=== PATIENT | male | born 1960 | race Caucasian/White ===

== ENCOUNTER 2021-01-24 18:29 | Inpatient (IN) | payer MEDICAID, OTHER ==
[~2021-01-24] VITALS: Ht 172.7 cm; Wt 120.8 kg
--- NOTE | 2021-01-24 19:07 | NUR ---
Pt ambulated to ER with steady gait with c/o n/v since yesterday. A/O x3, no SOB or labored breathing. Clear speech, complete sentences.
--- NOTE | 2021-01-24 19:30 | NUR ---
DR. DEL ROSARIO AT BEDSIDE, MSE IN BEDSIDE.
[2021-01-24] MEDS ORDERED: IV NORMAL SALINE 1000 ML BAG IV ONE ×2 (19:45→23:00)
[2021-01-24] MEDS ORDERED: METOCLOPRAMIDE HCL 10 MG/2 ML VIAL IV ONE (19:45)
[2021-01-24] MEDS ORDERED: KETOROLAC TROMETHAMINE 15 MG INJ IVP ONE (19:45)
[2021-01-24] MEDS ORDERED: LORAZEPAM 2 MG/1 ML VIAL IV ONE ×2 (19:45→22:30)
[2021-01-24] MEDS ORDERED: METOCLOPRAMIDE HCL 10 MG/2 ML VIAL ONE (20:02)
[2021-01-24] MEDS ORDERED: KETOROLAC TROMETHAMINE 15 MG INJ ONE (20:02)
[2021-01-24] MEDS ORDERED: LORAZEPAM 2 MG/1 ML VIAL ONE ×2 (20:03→22:43)
[2021-01-24 20:14] LABS: MEAN CORPUSCULAR HEMOGLOBIN 28.2 uug (23.8-33.4); MEAN CORPUSCULAR VOLUME 92.7 fL (73.0-96.2); PLATELET COUNT (AUTO) 215 K/uL (152-348)
[2021-01-24 20:20] LABS: CREATININE 1.4 mg/dL (0.6-1.3); POTASSIUM 4.6 mmol/L (3.5-5.1)
[2021-01-24 20:42] LABS: BILIRUBIN,DIRECT 0.3 mg/dL (0.0-0.2); BILIRUBIN,TOTAL 0.6 mg/dL (0.2-1.0); TOTAL PROTEIN, SERUM 8.6 g/dL (6.4-8.2)
--- NOTE | 2021-01-24 21:33 | NUR ---
PT TAKEN DOWN FOR CT, SIGNED CONSENT FORM.
[2021-01-24] MEDS ORDERED: IV NORMAL SALINE 250 ML IV ONE (21:43)
[2021-01-24] MEDS ORDERED: IOHEXOL 300MG/ML 100 ML INFUS..BTL ONE (21:43)
[2021-01-24] MEDS ORDERED: SWABABLE VALVE TRANSFER SET EA MC ONE (21:43)
--- NOTE | 2021-01-24 21:56 | NUR ---
PT RETURNED FROM CT. STABLE CONDITION.
[2021-01-24 22:12] LABS: *BILIRUBIN,URIN 1+ (NEGATIVE); *BLOOD, URINE 2+ (NEGATIVE); *CLARITY,URINE CLEAR (CLEAR); *COLOR,URINE YELLOW (YELLOW); *KETONES,URINE 3+ (NEGATIVE); *UROBILINOGEN,URINE 0.2 E.U./dl (NORMAL); LEUKOCYTE ESTERASE ,URINE NEGATIVE (NEGATIVE); NITRITE, URINE NEGATIVE (NEGATIVE); PH,URINE 5.5 (5.0-8.0); UGLUCOSE NEGATIVE (NEGATIVE)
[2021-01-24 22:22] LABS: BACTERIA,URINE NONE SEEN /HPF (NONE SEEN); SQUAMOUS EPITHELIAL CELL,UR FEW /HPF (NONE SEEN); WBC,URINE 0-3 /HPF (0-3)
--- NOTE | 2021-01-24 22:31 | NUR ---
CALLED [facility] FOR PANEL CALL, RICARDO BATES PAGED.
[2021-01-24] MEDS ORDERED: ALPR1TAB7 PO (23:02)
[2021-01-25] VITALS (7 sets, daily range): BP systolic 125–155; BP diastolic 74–82
[2021-01-25] MEDS ORDERED: ACETAMINOPHEN 325 MG TABLET PO PRN (00:15)
[2021-01-25] MEDS ORDERED: LABETALOL HCL 100 MG/20 ML VIAL IV PRN (00:15)
[2021-01-25] MEDS ORDERED: hydrALAZINE HCL 20 MG/1 ML VIAL IV PRN (00:15)
[2021-01-25] MEDS ORDERED: MAGNESIUM HYDROXIDE 30 ML LIQUID UDC PO PRN (00:15)
--- NOTE | 2021-01-25 00:15 | NUR ---
PT RESTING COMFORTABLY IN BED, DENIES ANY PAIN/DISCOMFORT. VSS. NOTED TO BE USING HIS PHONE.
[2021-01-25] MEDS ORDERED: DEXTROSE 50% 50 ML DISP.SYRIN IV PRN (00:30)
[2021-01-25] MEDS ORDERED: CHLORDIAZEPOXIDE HCL 25 MG CAPSULE PO SCH ×2 (00:30→09:00)
--- NOTE | 2021-01-25 00:58 | NUR ---
GAVE REPORT TO CHEPE ROSE.
--- NOTE | 2021-01-25 02:00 | NUR ---
Pt. admitted to [facility] room 321, under care of DR. BATES Dx: alcohol keto acidosis Belongs List completed
[2021-01-25] MEDS: LORAZEPAM 2 MG/1 ML VIAL IV PRN ×3 (02:16→18:05)
[2021-01-25] MEDS: BLOOD SUGAR DIAGNOSTIC 1 EACH STRIP VI SCH ×5 (02:20→20:43)
[2021-01-25] MEDS: IV D5 1/2 NS 1000 ML 1,000 ML IV SCH ×7 (02:20→20:15)
[2021-01-25] MEDS ORDERED: CHLORDIAZEPOXIDE HCL 25 MG CAPSULE ONE (03:08)
[2021-01-25] MEDS: ONDANSETRON 4 MG/2 ML VIAL IV PRN ×3 (03:46→23:26)
[2021-01-25] MEDS: HYDROCODONE/APAP 5-325MG TABLET PO PRN ×2 (04:45→23:25)
--- NOTE | 2021-01-25 05:19 | NUR ---
IV fluid not administered at this time, will finish the present bag yet. Will endorse accordingly.
--- NOTE | 2021-01-25 06:18 | NUR ---
Shift End Report. ST up to 110-115bpm non sustaining. Medicated once for pain with help. No further complaint presented but very needy and demanding, call light on all the time, needs attended and met. Continue care as planned.
[2021-01-25 06:41] LABS: CREATINE KINASE, TOTAL 615 U/L (39-308)
[2021-01-25 06:49] LABS: CREATININE 1.2 mg/dL (0.6-1.3)
[2021-01-25 06:54] LABS: ETHANOL < 3 MG/DL (0-0)
[2021-01-25 06:55] LABS: BILIRUBIN,TOTAL 0.7 mg/dL (0.2-1.0); TOTAL PROTEIN, SERUM 6.7 g/dL (6.4-8.2)
--- NOTE | 2021-01-25 07:52 | NUR ---
Alert, oriented x 4. IVF infusing. Denies pain. Call light with in reach.
[2021-01-25] MEDS: HEPARIN SODIUM,PORCINE 5,000 UNITS/ML VIAL SQ SCH ×2 (08:35→20:41)
[2021-01-25] MEDS: INSULIN REGULAR, HUMAN 300 UNIT/3 ML VIAL SQ PRN ×4 (08:36→20:42)
[2021-01-25] MEDS ORDERED: HEPARIN SODIUM,PORCINE 5,000 UNITS/ML VIAL SQ SCH (09:00)
[2021-01-25] MEDS ORDERED: Medication Not On Formulary EA (Alprazolam (Xanax) 1 MG) PO SCH (09:00)
[2021-01-25] MEDS: AMOXICILLIN-CLAVUL 875-125MG TABLET PO SCH ×2 (09:29→17:20)
[2021-01-25] MEDS: DIAZEPAM 10 MG TABLET PO SCH ×3 (10:36→21:28)
--- NOTE | 2021-01-25 11:00 | NUR ---
Monitored for withdrawal symptoms per protocol. Valium given as ordered
[2021-01-25] MEDS ORDERED: ALPRAZOLAM 0.5 MG TABLET PO PRN (12:30)
[2021-01-25 12:31] LABS: BILIRUBIN,TOTAL 0.6 mg/dL (0.2-1.0); CREATININE 1.2 mg/dL (0.6-1.3); POTASSIUM 3.5 mmol/L (3.5-5.1); TOTAL PROTEIN, SERUM 6.4 g/dL (6.4-8.2)
[2021-01-25 13:03] LABS: HEMATOCRIT 34.1 % (36.7-47.1); MEAN CORPUSCULAR VOLUME 88.4 fL (73.0-96.2); PLATELET COUNT (AUTO) 156 K/uL (152-348)
[2021-01-25 16:55] LABS: BILIRUBIN,TOTAL 0.6 mg/dL (0.2-1.0); CREATININE 1.2 mg/dL (0.6-1.3); POTASSIUM 3.3 mmol/L (3.5-5.1); TOTAL PROTEIN, SERUM 6.5 g/dL (6.4-8.2)
--- NOTE | 2021-01-25 18:11 | NUR ---
Feeling anxious. Ativan PRN given as ordered. Endorsed for further care
--- NOTE | 2021-01-25 19:30 | NUR ---
Received pt in bed, awake and verbally responsive, able to make needs known. IVF infusing well. No signs of respiratory distress. Discussed plan of care with pt. Safety measures initiated, call light within reach.
--- NOTE | 2021-01-25 20:17 | NUR ---
IVF already administered by AM nurse.
[2021-01-25 20:48] LABS: BILIRUBIN,TOTAL 0.5 mg/dL (0.2-1.0); CREATININE 1.1 mg/dL (0.6-1.3); POTASSIUM 3.4 mmol/L (3.5-5.1); TOTAL PROTEIN, SERUM 6.7 g/dL (6.4-8.2)
[2021-01-26] MEDS: LORAZEPAM 2 MG/1 ML VIAL IV PRN ×2 (00:09→06:09)
[2021-01-26] MEDS: IV D5 1/2 NS 1000 ML 1,000 ML IV SCH ×2 (00:21→06:02)
[2021-01-26 03:39] LABS: BILIRUBIN,TOTAL 0.4 mg/dL (0.2-1.0); CREATININE 1.1 mg/dL (0.6-1.3); POTASSIUM 3.3 mmol/L (3.5-5.1); TOTAL PROTEIN, SERUM 6.4 g/dL (6.4-8.2)
[2021-01-26 04:41] VITALS: BP 152/80
[2021-01-26 04:55] LABS: BILIRUBIN,TOTAL 0.4 mg/dL (0.2-1.0); POTASSIUM 3.2 mmol/L (3.5-5.1); TOTAL PROTEIN, SERUM 6.5 g/dL (6.4-8.2)
[2021-01-26] MEDS ORDERED: CHLORDIAZEPOXIDE HCL 25 MG CAPSULE PO SCH ×2 (06:00→09:00)
[2021-01-26] MEDS ORDERED: DIAZEPAM 5 MG TABLET PO SCH (06:00)
--- NOTE | 2021-01-26 07:00 | NUR ---
Monitored for withdrawal symptoms per protocol. No significant change in condition noted through the night. Tolerated medications well. New IV access on R AC intact and patent. Latest BS is 111. All needs attended to and met.
[2021-01-26 07:03] LABS: BILIRUBIN,TOTAL 0.5 mg/dL (0.2-1.0); CREATININE 0.9 mg/dL (0.6-1.3); PHOSPHOROUS 1.1 mg/dL (2.5-4.9); POTASSIUM 3.1 mmol/L (3.5-5.1); TOTAL PROTEIN, SERUM 6.6 g/dL (6.4-8.2)
[2021-01-26 07:12] LABS: HEMATOCRIT 32.4 % (36.7-47.1); MEAN CORPUSCULAR HEMOGLOBIN 28.1 uug (23.8-33.4); MEAN CORPUSCULAR VOLUME 86.2 fL (73.0-96.2); PLATELET COUNT (AUTO) 131 K/uL (152-348)
[2021-01-26] MEDS: BLOOD SUGAR DIAGNOSTIC 1 EACH STRIP VI SCH ×4 (07:32→20:57)
[2021-01-26] MEDS: HEPARIN SODIUM,PORCINE 5,000 UNITS/ML VIAL SQ SCH ×2 (08:52→20:51)
[2021-01-26] MEDS: AMOXICILLIN-CLAVUL 875-125MG TABLET PO SCH ×2 (08:53→18:02)
[2021-01-26] MEDS ORDERED: POTASSIUM PHOSPHATE MM 30 MMOL in IV NORMAL SALINE 250 ML IV ONE (09:00)
[2021-01-26] MEDS: POTASSIUM PHOSPHATE MM 7.5 MMOL in IV NORMAL SALINE 97.5 ML IV SCH ×4 (10:19→18:01)
[2021-01-26 11:58] LABS: BILIRUBIN,TOTAL 0.5 mg/dL (0.2-1.0); POTASSIUM 3.3 mmol/L (3.5-5.1); TOTAL PROTEIN, SERUM 6.4 g/dL (6.4-8.2)
[2021-01-26 12:00] VITALS: BP 141/94
[2021-01-26] MEDS: LORAZEPAM 2 MG/1 ML VIAL IV SCH ×3 (12:07→23:35)
[2021-01-26] MEDS: HYDROCODONE/APAP 5-325MG TABLET PO PRN ×2 (12:07→16:43)
[2021-01-26 16:00] VITALS: BP 146/97
[2021-01-26] MEDS: ONDANSETRON 4 MG/2 ML VIAL IV PRN ×2 (16:42→23:16)
[2021-01-26 16:54] LABS: BILIRUBIN,TOTAL 0.3 mg/dL (0.2-1.0); POTASSIUM 3.3 mmol/L (3.5-5.1); TOTAL PROTEIN, SERUM 6.2 g/dL (6.4-8.2)
[2021-01-26 20:00] VITALS: BP 143/86
[2021-01-26 20:27] LABS: BILIRUBIN,TOTAL 0.4 mg/dL (0.2-1.0); POTASSIUM 3.7 mmol/L (3.5-5.1); TOTAL PROTEIN, SERUM 6.6 g/dL (6.4-8.2)
[2021-01-26] MEDS: INSULIN REGULAR, HUMAN 300 UNIT/3 ML VIAL SQ PRN (21:20)
[2021-01-26] MEDS ORDERED: CALCIUM CARBONATE 500 MG TAB.CHEW PO PRN (21:30)
[2021-01-26] MEDS ORDERED: FAMOTIDINE 20 MG TABLET PO PRN (21:30)
--- NOTE | 2021-01-26 22:11 | NUR ---
Patient in bed awake verbally responsive.On Ra.No s/s of distress noted.NSR on tele.Continue monitoring for withdrawal symptoms per protocol.Patient c/ o acid reflux . notified with new order received noted and carried out.Iv on right AC 20 g patent and intact. ATivan Iv given as ordered. BS this morning 104.Will endorse to incoming shift.All needs anticipated and met accordingly..
[2021-01-27] VITALS: BP 151/92
[2021-01-27] MEDS: HYDROCODONE/APAP 5-325MG TABLET PO PRN ×2 (01:41→11:20)
[2021-01-27 04:00] VITALS: BP 136/96
[2021-01-27] MEDS: ONDANSETRON 4 MG/2 ML VIAL IV PRN (05:16)
[2021-01-27] MEDS: LORAZEPAM 2 MG/1 ML VIAL IV SCH ×2 (05:43→11:20)
[2021-01-27] MEDS ORDERED: DIAZEPAM 5 MG TABLET PO PRN (06:00)
[2021-01-27] MEDS: BLOOD SUGAR DIAGNOSTIC 1 EACH STRIP VI SCH ×2 (06:37→11:30)
[2021-01-27] MEDS: HEPARIN SODIUM,PORCINE 5,000 UNITS/ML VIAL SQ SCH (08:54)
[2021-01-27] MEDS: AMOXICILLIN-CLAVUL 875-125MG TABLET PO SCH (08:55)
[2021-01-27] MEDS ORDERED: DIAZ5TAB PO ×2 (09:01→10:49)
[2021-01-27] MEDS ORDERED: AMOX-430 PO ×2 (09:01→10:49)
== END 2021-01-27 12:30 | disposition home health service (06) | DRG 775 ==
LOC: ER 18:31 → DOU3 23:55 → TELE-TD3 01-25 01:59 → TELE3 01-25 12:44
PROVIDERS: ADMIT Internal Medicine; ATTEND Internal Medicine
DX: F10.239 Alcohol dependence with withdrawal, unspecified (principal); N17.0 Acute kidney failure with tubular necrosis; E43 Unspecified severe protein-calorie malnutrition; E87.2 Acidosis; E86.0 Dehydration; F32.9 Major depressive disorder, single episode, unspecified; Y90.3 Blood alcohol level of 60-79 mg/100 ml; Z90.49 Acquired absence of other specified parts of digestive tract; Z20.822 Contact with and (suspected) exposure to COVID-19; R74.01 Elevation of levels of liver transaminase levels; F41.9 Anxiety disorder, unspecified; A09 Infectious gastroenteritis and colitis, unspecified; Z68.41 Body mass index [BMI] 40.0-44.9, adult
CPT/HCPCS: 36415; 70030-TC; 71045; 76705; 83605; 83690; 84100; 85025; 85730; 87040; 87086; 93005; A4663; G0378; G0480; J1644; J1815; J1885; J2060; J2405; J2765; J3490; J7030; J7050; Q9967

== ENCOUNTER 2024-09-18 10:18 | Inpatient (IN) | payer MEDICARE, MEDICAID ==
[~2024-09-18] VITALS: Ht 177.8 cm; Wt 108.9 kg
[~2024-09-18 10:18] MED LIST: ALPR1TAB7 PO; AMOX-430 PO; DIAZ5TAB PO
[2024-09-18] MEDS ORDERED: LORAZEPAM 2 MG/1 ML VIAL ONE ×2 (10:58→13:23)
[2024-09-18] MEDS: IV NORMAL SALINE 1000 ML BAG IV ONE ×2 (11:11→11:39)
[2024-09-18] MEDS: LORAZEPAM 2 MG/1 ML VIAL IV ONE ×2 (11:11→13:30)
[2024-09-18 11:12] LABS: BASOPHILS % (AUTO) 0.2 % (0.0-2.0); HEMATOCRIT 40.7 % (36.7-47.1); HEMOGLOBIN 13.1 g/dL (12.5-16.3); LYMPHOCYTES # (AUTO) 0.9 K/uL (0.8-4.8); LYMPHOCYTES % (AUTO) 7.1 % (20.5-51.5); MEAN CORPUSCULAR HEMOGLOBIN 27.9 uug (23.8-33.4); MEAN CORPUSCULAR HGB CONC 32 g/dL (32.5-36.3); MEAN CORPUSCULAR VOLUME 86.7 fL (73.0-96.2); MONOCYTES # (AUTO) 0.9 K/uL (0.1-1.30); MONOCYTES % (AUTO) 6.8 % (0.0-11.0); NEUTROPHILS # (AUTO) 11.1 K/uL (1.8-8.9); NEUTROPHILS % (AUTO) 85.9 % (38.5-71.5); PLATELET COUNT (AUTO) 280 K/uL (152-348); RED BLOOD CELL COUNT(AUTO) 4.69 MIL/uL (4.06-5.63)
[2024-09-18 11:13] LABS: DIFFERENTIAL COMMENT 1
[2024-09-18 11:21] LABS: CALCIUM 8.9 mg/dL (8.5-10.1); CARBON DIOXIDE 17 mmol/L (21-32); CHLORIDE 100 mmol/L (98-107); CREATININE 1.4 mg/dL (0.6-1.3); GLUCOSE 143 mg/dL (74-106); SODIUM SERUM 138 mmol/L (136-145); UREA NITROGEN, BLOOD 23 mg/dL (7-18)
[2024-09-18 11:23] LABS: ETHANOL 194 MG/DL (0-10)
[2024-09-18 11:27] LABS: ALANINE AMINOTRANSFERASE 30 U/L (16-63); ALKALINE PHOSPHATASE 87 U/L (50-136); ASPARTATE AMINOTRANSFERASE 39 U/L (15-37); BILIRUBIN,DIRECT 0.1 mg/dL (0.0-0.2); BILIRUBIN,TOTAL 0.4 mg/dL (0.2-1.0); TOTAL PROTEIN, SERUM 7.5 g/dL (6.4-8.2)
[2024-09-18 11:31] LABS: ACETAMINOPHEN < 10.0 ug/mL (10-30)
[2024-09-18 12:23] LABS: *BILIRUBIN,URIN 1+ (NEGATIVE); *BLOOD, URINE 1+ (NEGATIVE); *COLOR,URINE YELLOW (YELLOW); *KETONES,URINE 3+ (NEGATIVE); *PROTEIN,URINE 2+ (NEGATIVE); *UROBILINOGEN,URINE 0.2 E.U./dl (NORMAL); LEUKOCYTE ESTERASE ,URINE NEGATIVE (NEGATIVE); NITRITE, URINE NEGATIVE (NEGATIVE); PH,URINE 5.5 (5.0-8.0); UGLUCOSE NEGATIVE (NEGATIVE)
[2024-09-18 12:26] LABS: *CLARITY,URINE SLIGHTLY CLOUDY (CLEAR); BACTERIA,URINE FEW /HPF (NONE SEEN); URINE AMORPHOUS URATE FEW /HPF; WBC,URINE 0-3 /HPF (0-3)
[2024-09-18] MEDS ORDERED: ACETAMINOPHEN 325 MG TABLET PO PRN (12:30)
[2024-09-18] MEDS ORDERED: ONDANSETRON 4 MG/2 ML VIAL IV PRN (12:30)
[2024-09-18] MEDS ORDERED: REMEDY ESSENTIAL ZINC PASTE 113 GM TP PRN (12:30)
[2024-09-18] MEDS ORDERED: MAGNESIUM HYDROXIDE 30 ML LIQUID UDC PO PRN (12:30)
[2024-09-18 12:34] LABS: *AMPHETAMINE, URINE NEGATIVE (NEGATIVE); *BARBITURATE, URINE NEGATIVE (NEGATIVE); *BENZODIAZEPINE, URINE NEGATIVE (NEGATIVE); *CANNABINOID, URINE NEGATIVE (NEGATIVE); *COCCAINE, URINE NEGATIVE (NEGATIVE); *OPIATE, URINE NEGATIVE (NEGATIVE); *PHENCYCLIDINE SCREEN,URINE NEGATIVE (NEGATIVE); FENTANYL, URINE NEGATIVE (NEGATIVE)
[2024-09-18] MEDS ORDERED: MORPHINE SULFATE 2 MG/1 ML DISP.SYRIN ONE (12:41)
[2024-09-18] MEDS: MORPHINE SULFATE 2 MG/1 ML DISP.SYRIN IV ONE (12:45)
[2024-09-18] MEDS ORDERED: diphenhydrAMINE 50 MG/1 ML VIAL ONE (13:22)
[2024-09-18] MEDS ORDERED: HALOPERIDOL LACTATE 5 MG/1 ML VIAL ONE (13:23)
[2024-09-18] MEDS: diphenhydrAMINE 50 MG/1 ML VIAL IV ONE (13:30)
[2024-09-18] MEDS: HALOPERIDOL LACTATE 5 MG/1 ML VIAL IV ONE (13:30)
[2024-09-18] MEDS ORDERED: MIDAZOLAM HCL 2 MG/2 ML VIAL ONE (14:14)
[2024-09-18] MEDS: KETOROLAC TROMETHAMINE 15 MG INJ IVP ONE (14:15)
[2024-09-18] MEDS: MIDAZOLAM HCL 2 MG/2 ML VIAL IV ONE (14:19)
[2024-09-18] MEDS ORDERED: CHLORDIAZEPOXIDE HCL 25 MG CAPSULE PO SCH (14:35)
[2024-09-18] MEDS ORDERED: CEFTRIAXONE 1 G in IV DEXTROSE 5% 50 ML IV SCH (15:30)
[2024-09-18 15:33] VITALS: BP 118/65; TEMP 98.2; O2SAT 99
[2024-09-18] MEDS: CHLORDIAZEPOXIDE HCL 25 MG CAPSULE PO SCH (15:53)
[2024-09-18] MEDS: IV NS 1000 ML 1,000 ML IV PRN (15:54)
[2024-09-18] MEDS: OLANZAPINE 10 MG VIAL IM ONE (15:54)
[2024-09-18] MEDS: CEFTRIAXONE 2 G in IV DEXTROSE 5% 100 ML IV SCH (17:19)
[2024-09-18] MEDS: THIAMINE HCL INJ 100 MG in IV DEXTROSE 5% 50 ML IV SCH (18:56)
[2024-09-18 19:30] VITALS: BP 130/67; TEMP 98.2; O2SAT 95
[2024-09-18] MEDS: HYDROCODONE/APAP 10-325 MG TABLET PO PRN (21:14)
[2024-09-19 06:04] LABS: BASOPHILS # (AUTO) 0.1 K/UL (0.0-0.2); BASOPHILS % (AUTO) 0.8 % (0.0-2.0); EOSINOPHILS # (AUTO) 0.2 K/uL (0.0-0.7); EOSINOPHILS % (AUTO) 3.8 % (0.0-7.0); HEMATOCRIT 31.5 % (36.7-47.1); HEMOGLOBIN 10.5 g/dL (12.5-16.3); LYMPHOCYTES # (AUTO) 1.6 K/uL (0.8-4.8); LYMPHOCYTES % (AUTO) 25.6 % (20.5-51.5); MEAN CORPUSCULAR HEMOGLOBIN 28.7 uug (23.8-33.4); MEAN CORPUSCULAR HGB CONC 33 g/dL (32.5-36.3); MEAN CORPUSCULAR VOLUME 86.4 fL (73.0-96.2); MONOCYTES # (AUTO) 0.7 K/uL (0.1-1.30); MONOCYTES % (AUTO) 10.9 % (0.0-11.0); NEUTROPHILS # (AUTO) 3.7 K/uL (1.8-8.9); NEUTROPHILS % (AUTO) 58.9 % (38.5-71.5); PLATELET COUNT (AUTO) 177 K/uL (152-348); RED BLOOD CELL COUNT(AUTO) 3.65 MIL/uL (4.06-5.63); RED CELL DISTRIBUTION WIDTH 14.1 % (12.1-16.2); WHITE BLOOD COUNT (AUTO) 6.2 K/uL (3.6-10.2)
[2024-09-19 06:10] LABS: DIFFERENTIAL COMMENT 1
[2024-09-19 06:11] LABS: CALCIUM 7.8 mg/dL (8.5-10.1); CREATININE 0.9 mg/dL (0.6-1.3); MAGNESIUM 1.9 mg/dL (1.8-2.4); POTASSIUM 3.9 mmol/L (3.5-5.1)
[2024-09-19] MEDS: ALPRAZOLAM 0.25 MG TABLET PO PRN (09:30)
[2024-09-19 11:44] VITALS: BP 143/60; TEMP 98; O2SAT 98
[2024-09-19] MEDS ORDERED: SERT-439 PO (13:32)
[2024-09-19] MEDS ORDERED: THIA100T13 PO (13:32)
[2024-09-19] MEDS ORDERED: CHLO25CA22 PO (13:32)
[2024-09-19] MEDS ORDERED: THIAMINE HCL 100 MG TABLET PO SCH (18:00)
[2024-09-20] MEDS ORDERED: SERTRALINE HCL 50 MG TABLET PO SCH (09:00)
== END 2024-09-19 14:40 | disposition home or self-care (01) | DRG 682 ==
LOC: ER 11:20 → TELE3 14:34 → MEDSURG3 15:30
PROVIDERS: ADMIT Nurse Practitioner Acute Care; ATTEND Nurse Practitioner Acute Care
DX: N17.0 Acute kidney failure with tubular necrosis (principal); G92.8 Other toxic encephalopathy; E87.20 Acidosis, unspecified; E87.29 Other acidosis; E86.0 Dehydration; E66.9 Obesity, unspecified; F10.10 Alcohol abuse, uncomplicated; M89.8X9 Other specified disorders of bone, unspecified site; F32.A Depression, unspecified; F41.9 Anxiety disorder, unspecified; Z68.34 Body mass index [BMI] 34.0-34.9, adult; Y90.6 Blood alcohol level of 120-199 mg/100 ml; D72.829 Elevated white blood cell count, unspecified
CPT/HCPCS: 36415; 71045; 83605; 83735; 84100; 85025; 85730; 87040; 87086; 93005; G0378; G0480; J0696; J1200; J1630; J2060; J2250; J2270; J2358; J3411; J7040